=== PATIENT | male | born 1955 | race Caucasian/White ===

== ENCOUNTER 2019-12-24 00:02 | Emergency (ER) | payer MEDICAID ==
[~2019-12-24] VITALS: Ht 180.3 cm; Wt 99.8 kg
[~2019-12-24 00:02] MED LIST: COLCHICINE 0.60.6 M1 PO; GLUCOPHAGE500 MG; GLUCOPHAGE500 MG PO; INDOMETHACIN 5050 M1 PO; NEURONTIN 300M300 M2 PO; NORCO 5-325 TA1 EACH PO
[2019-12-24 00:33] VITALS: BP 150/87
== END 2019-12-24 01:02 | disposition home or self-care (01) ==
LOC: M.ERS 00:02
DX: S30.861A Insect bite (nonvenomous) of abdominal wall, initial encounter (principal); L03.311 Cellulitis of abdominal wall; E11.9 Type 2 diabetes mellitus without complications; M10.9 Gout, unspecified; W57.XXXA Bitten or stung by nonvenomous insect and other nonvenomous arthropods, initial encounter; Y93.89 Activity, other specified; Y92.89 Other specified places as the place of occurrence of the external cause; Y99.8 Other external cause status